=== PATIENT | female | born 1955 | race Caucasian/White ===

== ENCOUNTER → 2016-10-24 | Outpatient (REF) | payer BC ==
[~2016-10-24] MED LIST: ACET325T38 PO; B2/V1TAB PO; ESTR0.452 PO; MELO-249 PO
[2016-10-24 12:26] LABS: ALBUMIN 4.2 g/dL (3.4-5.0); ANION GAP 13.5 MEQ/L (3-15); CALCULATED IONIZED CALCIUM 3.3 mg/dL (3.8-4.6); TOTAL PROTEIN 9.3 g/dL (6.4-8.5)
== END ==
LOC: LAB 12:15
PROVIDERS: ATTEND Family Medicine
DX: Z01.89 Encounter for other specified special examinations (principal)
CPT/HCPCS: 80053

== ENCOUNTER 2016-11-28 09:00 | Outpatient (RCR) | payer BC ==
--- NOTE | 2016-11-28 11:28 | PT/OT/ST INITIAL EVALUATION ---
Department of Health and Human Services Form Approved Health Care Financing Administration OMB No. [id number] PLAN OF CARE/ASSESSMENT FOR OUTPATIENT REHABILITATION (Complete for Initial Claims Only) 1. PATIENT'S NAME Robert Grier 2. ACC # [id number] 3. HICN 4. PROVIDER NO. [id number] 5. TYPE: PT 6. PRIOR HOSPITALIZATION 7. PRIMARY DX Status post right TKA 8. SECONDARY DX 9. ONSET DATE 11/14/2016 10. REFERRAL DATE 11. SOC. DATE 11/17/2016 12. TIME OF EVAL 02:11 p.m. 12. REFERRING PHYSICIAN Dr. Vallecillo 13. CHARGES/UNITS 14. G CODES 15. PRIOR LEVEL OF FUNCTION; PERTINENT HISTORY (Prior therapy results, reason for referral.) S: Reason for referral: Prior to therapy patient did consent to today's evaluation and treatment. The patient is a 61-year-old female referred to physical therapy by Dr. Vallecillo to address status post right TKA. Patient states she has had a several year history of knee pain for at least 5 years with significant limitations and strength range of motion over the last year. This did culminate with the knee for a total knee replacement which was performed on 11/14/2016. The patient was out of the hospital on 11/13/2016. The patient is home along at this time but does have family and friends coming in to help her out as needed. She is able to handle all her ADLs at this time. The patient does state she has degeneration in the left knee as well and this one will need to be done at some time in the future. 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 The patient is additionally able to perform all previous activities without restrictions but she did have pain with them. Current level of function: Currently the patient is able to perform all ADLs but these are difficult for her especially getting in and out of her house and in and out of a car. Therapy history: Patient had PT in the hospital but did report stiffness with her knee at that time. Pain level: Maximum pain level 8 to 9/10. Pain at time of evaluation with medication and rest is 2/10. Patient describes the pain as an achy and stiffness sensation throughout the right knee. Obstacles to delivery of care: To include previous knee stiffness and left knee degeneration. Aggravating factors: Include any movement of the knee. Relieving factors: Rest and medications. Diagnostic testing: No diagnostic tests have been performed since surgery. Past medical history: Osteoarthritis, glaucoma and macular degeneration. Current medications: OxyContin, Tramadol and Meloxicam as well as a hormone replacement. Personal health rating: The patient does rate her overall and general health as good. Patient's Goal: The patient's goal for physical therapy is to get use of her knee and back to work. 16. INITIAL ASSESSMENT/SAFETY PRECAUTIONS/MEDICAL COMPLICATIONS (Level of function at start of care. Be specific, use objective measures, list problems.) O: APPEARANCE, OBSERVATION AND GAIT: The patient presents as a middle aged female in apparently healthy condition. She does ambulate with a front wheeled walker with an antalgic gait pattern. She is additionally guarded with transitions. PALPATION: With palpation the patient does have increased swelling and edema throughout the right lower extremity, throughout her ankle up to the knee. SPECIAL TESTS: Include patellar mobility which is approximately 25 percent limited in superior glide. Circumferential measures were taking throughout bilateral knees 10 cm superior to the joint line, at the joint line and 10 cm inferior to the knee joint line. These measurements on the right are 51.7 cm, 47 cm and 45.5 cm respectively. These measurements on the left are 46 cm, 42.5 cm and 41.2 cm respectively. RANGE OF MOTION/FLEXIBILITY: Throughout the left knee is 2 degrees of hyperextension to 115 degrees of flexion. Throughout the right knee initially was lacking 8 degrees from full extension to 88 degrees of flexion. Following today's treatment the patient was lacking 6 degrees from full extension to 92 degrees of flexion. STRENGTH: Throughout the left lower extremity was grossly 4+/5 throughout. Throughout the right lower extremity knee flexion and extension test grossly 3/5. On hip motion 4/5. Ankle motion 5/5. TODAY'S TREATMENT: Following initial evaluation therapy exercise was performed and initiated home exercise program. Manual therapy techniques including lymph node activation and manual lymphatic drainage was performed to the right lower extremity due to significant increase in edema and swelling. A vasopneumatic device with cold and compression was then performed throughout the right knee. The patient did have decreased swelling and edema following this treatment. 17. INITIAL POC: (Specify procedures, modalities, short and senior care goals) A: The patient presents to physical therapy with diagnoses of status post right TKA with resultant decreased active range of motion, decreased strength and increased pain, increased swelling and decreased gait. PROGNOSIS: This patient does have a good prognosis with regular therapy attendance, compliance with home exercise program. This patient is expected to benefit from physical therapy services or to have increased active range of motion, increased strength for return to full prior activities. LOWER EXTREMITY FUNCTIONAL INDEX: Scored 0/80. INFORMED CONSENT: The diagnoses prognosis treatment plan with expected outcome are discussed with the patient. The patient did agree to today's established plan of care. SHORT TERM GOALS: 1. The patient to be independent and compliant with home exercise problem in 1 week. 2. The patient with active range of motion right knee lacking no more than 2 degrees from full extension to 115 degrees of flexion in 3 weeks to allow stair ambulation. 3. The patient with right knee strength 4+/5 in 5 weeks to allow normal gait in the community without an assistive device. 4. The patient lower functional index score at least 50/80 to return to work in 6 weeks. P: Plan to treatment patient 3 times per week for 6 weeks in order to address status post right TKA. Therapeutic treatments to include modalities to decrease, pain, inflammation and swelling. Manual therapy techniques as indicated. Therapeutic exercise targeting active range of motion, strengthening and knee stabilization activities. Gait training, balance and proprioception training, inpatient education training and home exercise program to advance as warranted. 18. FREQUENCY 19. DURATION 20. FUNCTIONAL LEVEL (End of claim period) 21. PHYSICIAN SIGNATURE ? ON FILE OR ENTER HERE: 22. DATE: I certify the need for these services furnished under this plan of care and if for partial hospitalization. 23. CERTIFICATION FROM THROUGH [id number]
== END 2016-12-01 09:57 | disposition home or self-care (01) ==
LOC: PT 09:00
PROVIDERS: ATTEND Orthopaedic Surgery Adult Reconstructive Orthopaedic Surgery
DX: Z96.651 Presence of right artificial knee joint (principal)